=== PATIENT | male | born 1950 ===

== ENCOUNTER 2025-01-01 14:04 | Outpatient (AMB) | payer MEDICAID, SELFPAY ==
--- NOTE | 2025-01-01 14:46 | A.OFFPC_ITS ---
Vital Signs 01/01/25 14:49 Height 5 ft 6 in Weight 133 lb 2.547 oz BMI 21.5 BP 130/74 Blood Pressure Location Lt brachial Position Sitting Pulse 63 Pulse Source Pulse Oximeter Temp 97.5 F Temp Source Temporal Artery Scan Pulse Oximetry (%) 91 L Oxygen Delivery Method Room Air Intake Visit Reasons: establish care Intake Note: Patient is a new patient here to establish care for COPD, Heart issues, sinus issues, prostate issues, Asthma, Blurry vision and some Hearing loss. Transferring care from [facility]. Medical records have been requested and have not received. Yeast Cake Cutter Required: No Information Technology Manager: Present Accompanied by: Son Allergies No Known Allergies Allergy (Verified 01/01/25 18:43) Medication List - Last Reconciled 01/01/25 by Mariano Soliz MD azithromycin 250 mg PO DAILY bisoprolol fumarate 5 mg PO DAILY fluticasone furoate-vilanterol 200-25 mcg/dose (Breo Ellipta) 1 ea inhalation DAILY fluticasone propionate 50 mcg/actuation 1 spray intranasal BID ipratropium-albuterol 0.5 mg-3 mg(2.5 mg base)/3 mL mL inhalation omeprazole 20 mg PO DAILY rivaroxaban (Xarelto) 20 mg PO QPM tadalafil 5 mg PO DAILY tamsulosin 0.4 mg PO DAILY umeclidinium 62.5 mcg/actuation (Incruse Ellipta) 1 inh inhalation DAILY Tobacco use date assessed: 01/01/25 Fall risk assessment: No Falls in past year Last assessed Fall Risk: 01/01/25 Dental Screening Dental Screen Date: 01/01/25 Did you have a dental visit in the last 12 months?: No Did you have a dental problem in the last 6 months where you did not have access to dental care?: No Was dental information given to patient?: No HPI establish care HPI Details 74-year-old male presents to the office to establish his care here. Patient only speaks Irish and translation is done by his son. Patient has relocated from [place] a few weeks ago. He has history of COPD and was using oxygen up to 5 hours at day at baseline. Recently after a long plane travel, any inordinate long stay at the airport, patient has been using oxygen all the time. He is wheelchair-bound and has a nonproductive cough. He was seen at [facility], hospitalized and recently discharge. Patient is carrying a diagnosis of COPD, atrial fibrillation, enlarged prostate and reflux disease. Patient would like an appointment for a outside maintenance worker. The outside maintenance worker who was offered to him at [facility] has given him a follow-up appointment in April. [facility] Medical History (Updated 01/01/25 @ 18:47 by Mariano Soliz MD) GERD (gastroesophageal reflux disease) Benign prostate hyperplasia Atrial fibrillation COPD (chronic obstructive pulmonary disease) with acute bronchitis Surgical History No pertinent past surgical history Social History Housing: House Alcohol intake: never Patient Tobacco Use Status: Former Tobacco user e-Cigarette/Vaping Use: Never Used Second Hand Smoke Exposure: No service: No Current occupational status: retired and disabled Cognitive needs: Yes (wheelchair, walker) Hearing needs: No Vision needs: Yes (Glasses) Questionnaire PHQ-9 Over the last 2 weeks, how often have you been bothered by any of the following problems? 1. Little interest or pleasure in doing things: not at all 2. Feeling down, depressed, or hopeless: not at all 3. Trouble falling or staying asleep, or sleeping too much: not at all 4. Feeling tired or having little energy: not at all 5. Poor appetite or overeating: not at all 6. Feeling bad about yourself - or that you are a failure or have let yourself or your family down: not at all 7. Trouble concentrating on things, such as reading the newspaper or watching television: not at all 8. Moving or speaking so slowly that other people could have noticed. Or the opposite - being so fidgety or restless that you have been moving around a lot more than usual: not at all 9. Thoughts that you would be better off or of hurting yourself in some way: not at all Total score: 0 Depression Screening Interpretation: Negative Depression Screening Done: Yes Source: Developed by Drs. Antoine Ward, Johnna Gary, Ruiz Son and colleagues, with an educational tramaine from [employer]. Thrive Questionnaire Date Thrive assessed: 01/01/25 I am a: Patient What is your living situation today?: I have a steady place to live Within the past 12 months, did the food you bought not last and you didn't have the money to get more?: Never true Within the past 12 months, did you worry whether your food would run out before you got money to buy more?: Never true Do you have trouble paying for medicines?: No Do you have trouble getting transportation to medical appointments?: No Do you have trouble paying your heating and electricity bill?: No Do you have trouble taking care of your child, family member or friend?: No Do you have trouble with day-to-day activities such as bathing, preparing meals, shopping, managing finances, etc.?: No Are you currently unemployed and looking for a job?: No Are you interested in more education?: No Please select the resources that you would like help with: None Currently or been in a relationship where the following occur: No concerns reported THRIVE Score: 0 AUDIT C Alcohol Use Questionnaire (AUDIT-C) 1. How often do you have a drink containing alcohol?: Never Total Score: 0 RICARDO-7 AMB Questionnaire RICARDO-7 Date RICARDO - 7 assessed: 01/01/25 Feeling nervous, anxious, or on edge: 0 = Not at all Not being able to stop or control worryin = Not at all Worrying too much about different things: 0 = Not at all Trouble relaxin = Not at all Being so restless that it is hard to sit still: 0 = Not at all Becoming easily annoyed or irritable: 0 = Not at all Feeling afraid as if something awful might happen: 0 = Not at all Total RICARDO-7 score (0-4 normal; 5-9 mild; 10-14 moderate; 15-21 severe): 0 Source: Developed by Drs. Antoine Ward, Johnna Gary, Ruiz Son and colleagues, with an educational tramaine from [employer]. Physical exam (Primary Care) Vital Signs: Last Vital Signs Temp 97.5 F 01/01/25 14:49 Pulse 63 01/01/25 14:49 BP 130/74 01/01/25 14:49 Pulse Ox 91 L 01/01/25 14:49 Oxygen Delivery Method Room Air 01/01/25 14:49 Care Plan Goal for BP management: Blood pressure is in range. Continue current medications. BMI result Body Mass Index 21.5 Tobacco/Smoking Status: Tobacco use Status Tobacco use date assessed 01/01/25 01/01/25 14:53 Patient Tobacco Use Status Former Tobacco user 01/01/25 15:03 e-Cigarette/Vaping Use Never Used 01/01/25 15:01 PHQ-9: PHQ-9 Score PHQ-9: Total score 0 01/01/25 14:53 Depression Screening Interpretation: Negative Thrive Assessment: Date of Thrive Assessment Date Thrive assessed 01/01/25 01/01/25 14:53 Currently or been in a relationship where the following occur: No concerns reported Const General: cooperative and healthy appearing Nutritional Appearance: well nourished Orientation/consciousness: patient oriented x3 Limitations: no limitations HENMT Head: Yes normal to inspection Eyes General: appearance normal, both eyes and all related structures Neck Neck: Yes normal visual inspection Chest Chest palpation & inspection: normal palpation of entire chest wall Resp Other: Coarse crackles bilaterally. Effort & Inspection: normal respiratory effort Cardio Palpation: normal PMI Rate: regular rate Heart sounds: S1 normal heart sound present and S2 normal heart sound present Neuro General: patient oriented x3 Coding Level of Care Code New Pt Level 4 (80543) Complex EM visit Add On G2211 Diagnoses COPD (chronic obstructive pulmonary disease) with acute bronchitis J44.0; J20.9 Benign prostate hyperplasia N40.0 Atrial fibrillation I48.91 GERD (gastroesophageal reflux disease) K21.9 Assessment & Plan Assessment & Plan (1) COPD (chronic obstructive pulmonary disease) with acute bronchitis: Code(s): J44.0 - Chronic obstructive pulmonary disease with (acute) lower respiratory infection; J20.9 - Acute bronchitis, unspecified Category: Medical Plan: Inhalers were reviewed. Patient on azithromycin. Pulmonary consult requested at [facility]. Continue home oxygen use. (2) Benign prostate hyperplasia: Code(s): N40.0 - Benign prostatic hyperplasia without lower urinary tract symptoms Category: Medical Plan: Condition is stable. (3) Atrial fibrillation: Code(s): I48.91 - Unspecified atrial fibrillation Category: Medical Plan: In sinus rhythm. Rate is well controlled. Continue anticoagulation. (4) GERD (gastroesophageal reflux disease): Code(s): K21.9 - Gastro-esophageal reflux disease without esophagitis Category: Medical Plan: Continue PPI. Orders: Referrals Pulmonology Referral J20.9 - Acute bronchitis, unspecified, J44.0 - Chronic obstructive pulmonary disease with (acute) lower respiratory infection
[2025-01-01 14:49] VITALS: BP 130/74; PULSE 63; TEMP 36.4; O2SAT 91; BMI 21.5
== END 2025-01-01 15:44 | disposition home or self-care (01) ==
PROVIDERS: PCP Internal Medicine; Visit Provider Internal Medicine
DX: J44.0 Chronic obstructive pulmonary disease with (acute) lower respiratory infection (principal); J20.9 Acute bronchitis, unspecified; N40.0 Benign prostatic hyperplasia without lower urinary tract symptoms; I48.91 Unspecified atrial fibrillation; K21.9 Gastro-esophageal reflux disease without esophagitis

== ENCOUNTER → 2025-01-01 14:04 | Outpatient (BNVA) | payer MEDICAID, SELFPAY | PROVIDERS: Visit Provider Internal Medicine | DX: J44.0 Chronic obstructive pulmonary disease with (acute) lower respiratory infection (principal); J20.9 Acute bronchitis, unspecified; N40.0 Benign prostatic hyperplasia without lower urinary tract symptoms; I48.91 Unspecified atrial fibrillation; K21.9 Gastro-esophageal reflux disease without esophagitis | CPT/HCPCS: 99202 ==

== ENCOUNTER 2025-02-26 13:30 | Outpatient (AMB) | payer MEDICAID, SELFPAY ==
--- NOTE | 2025-02-26 13:35 | MHC.PC.OV ---
Vital Signs 02/26/25 13:37 Height 5 ft 6 in Weight 128 lb 11.999 oz BMI 20.8 BP 120/70 Blood Pressure Location Lt brachial Position Sitting Pulse 65 Pulse Source Pulse Oximeter Temp 97.3 F Temp Source Temporal Artery Scan Pulse Oximetry (%) 91 L Oxygen Delivery Method Nasal Cannula Intake Visit Reasons: Discuss medication Intake Note: Patient is here to follow up on Discuss medication (Tadalafil). Engine Lathe Set Up Operator Tool Required: Yes Information Interpreted: non-clinical & clinical Curb Hop: Present Accompanied by: Son Allergies No Known Allergies Allergy (Verified 02/26/25 14:05) Medication List - Last Reconciled 02/26/25 by Mariano Soliz MD azithromycin 250 mg PO DAILY bisoprolol fumarate 5 mg PO DAILY fluticasone furoate-vilanterol 200-25 mcg/dose (Breo Ellipta) 1 ea inhalation DAILY fluticasone propionate 50 mcg/actuation 1 spray intranasal BID ipratropium-albuterol 0.5 mg-3 mg(2.5 mg base)/3 mL mL inhalation omeprazole 20 mg PO DAILY rivaroxaban (Xarelto) 20 mg PO QPM tadalafil 5 mg PO DAILY tamsulosin 0.4 mg PO DAILY umeclidinium 62.5 mcg/actuation (Incruse Ellipta) 1 inh inhalation DAILY Tobacco use date assessed: 02/26/25 Fall risk assessment: No Falls in past year Last assessed Fall Risk: 02/26/25 Dental Screening Dental Screen Date: 01/01/25 [facility] Medical History (Updated 02/26/25 @ 14:06 by Mariano Soliz MD) Cachexia On supplemental oxygen by nasal cannula GERD (gastroesophageal reflux disease) Benign prostate hyperplasia Atrial fibrillation COPD (chronic obstructive pulmonary disease) with acute bronchitis Surgical History No pertinent past surgical history Social History Housing: House Alcohol intake: never Patient Tobacco Use Status: Former Tobacco user e-Cigarette/Vaping Use: Never Used Second Hand Smoke Exposure: No service: No Current occupational status: retired and disabled Cognitive needs: Yes (wheelchair, walker) Hearing needs: No Vision needs: Yes (Glasses) Questionnaire Thrive Questionnaire Date Thrive assessed: 01/01/25 RICARDO-7 AMB Questionnaire RICARDO-7 Date RICARDO - 7 assessed: 01/01/25 Source: Developed by Drs. Antoine Ward, Johnna Gary, Ruiz Son and colleagues, with an educational tramaine from [employer]. Physical exam (Primary Care) Vital Signs: Last Vital Signs Temp 97.3 F 02/26/25 13:37 Pulse 65 02/26/25 13:37 BP 120/70 02/26/25 13:37 Pulse Ox 91 L 02/26/25 13:37 Oxygen Delivery Method Nasal Cannula 02/26/25 13:37 BMI result Body Mass Index 20.8 Tobacco/Smoking Status: Tobacco use Status Tobacco use date assessed 02/26/25 02/26/25 13:41 Patient Tobacco Use Status Former Tobacco user 02/26/25 13:36 e-Cigarette/Vaping Use Never Used 02/26/25 13:36 Thrive Assessment: Date of Thrive Assessment Date Thrive assessed 01/01/25 02/26/25 13:36 Coding Level of Care Code Est Pt Level 4 (12868) Complex EM visit Add On G2211 Diagnoses Cachexia R64 Assessment & Plan Assessment & Plan (1) Cachexia: Code(s): R64 - Cachexia Category: Medical Plan: Condition due to COPD and depression. Has multiple deaths in the family which has made him morose. Does not want to see a therapist. Reluctant to start antidepressants. Encouraged him to take small quantity of food multiple times a day. Plan History of Present Illness The patient is a 74-year-old male presenting with multiple medical concerns, primarily focusing on unintentional weight loss. Despite the intake of nutritional supplements like Ensure, weight reduction persists, accompanied by a notable decrease in appetite. These symptoms may be exacerbated by personal grief and stress factors related to his family situation, pointing towards associative depressive symptoms affecting his dietary intake. Management of prostate enlargement issues involving the usage of Tadalafil was discussed, yet there is ambiguity on whether to proceed with or cease usage. The patient reports trihydrating with liquid diets, specifically smoothies enriched with high-caloric ingredients like nuts and butter, as advised for better nutrition uptake, although urination issues are minimal. Hearing concerns have been assessed, confirming the necessity for hearing aids, yet further procedures and specialist intervention via an ENT specialist are awaited. The patient values communication in his [place] language and emphasizes continuity of care with specialists like Dr. Flores due to language abilities and mutual understanding. Discussions during the visit were both comprehensive and considerate of the array of chronic issues he faces. Social History - Has three children living in [place]. 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 - Currently receiving a nutritional intake primarily from liquid diets such as smoothies. - Reports limited appetite and food intake. - No mentioned substance use. - Personal stress due to the recent loss of a brother and associated depressive symptoms. Review of Systems - Constitutional: Reports weight loss. - Gastrointestinal: Reports significantly decreased appetite. - Genitourinary: Reports prostate enlargement-related issues without current urination difficulties. - Respiratory: Reports dyspnea on exertion. - Mental Health: Reports feelings of depression, likely related to family and personal loss. - Hearing: Reports hearing loss and requirement of further evaluation by an ENT. Physical Exam General: Cooperative and healthy appearing Nutritional Appearance: Well nourished Orientation/consciousness: Patient oriented x3 Limitations: No limitations Head: Normal to inspection General: Appearance normal, both eyes and all related structures Neck: Normal visual inspection Chest: Normal palpation of entire chest wall Respiratory: Patient is doing well, oxygen level is good even while walking. ormal respiratory effort Neurology: Patient oriented x3. Results - Tests and Diagnostics: - Previous assessment by the hearing department indicating a need for hearing aids. Plan 1. Unintentional Weight Loss - Advise on high-caloric liquid diet. - Monitor appetite levels. 2. Decreased Appetite - Consider appetite stimulants. - Reassess mood influence. 3. Prostate Enlargement - Consider Tadalafil management. 4. Hearing Loss - Expedite ENT referral. - Follow up on hearing aid recommendations. 5. Depressive Symptoms - Discuss mood concerns. - Consider therapy. 6. Dyspnea On Exertion - Continue pulmonary management, use oxygen as needed. 7. Erectile Dysfunction - Review Tadalafil usage. Discussion Notes During the visit, I discussed with the patient the concern of ongoing weight loss despite supplement use, emphasizing the importance of consistent intake of high-caloric liquid diets including smoothies enriched with nuts and protein to potentially improve his nutritional status. The role of mood disturbances on his appetite was also reviewed, with consideration for potential therapy if no improvement is noted. Regarding his prostate enlargement, the decision to cease or continue Tadalafil was deliberated, with advice provided to monitor any changes in urinary symptoms closely. Addressing the hearing loss, I confirmed the need to expedite a referral to an ENT specialist for hearing aids as per previous testing indicated their necessity. I committed to closely reviewing the progress with emphasis on coordination with specialists who speak his [place] language, as seen with Dr. Flores's pivotal role in managing his pulmonary care. For persistent depressive symptoms, therapeutic modalities were discussed to aid coping with emotional stressors. Patient Instructions - Eat smoothies or liquid nutrition with high calories, like nuts and butter. - Pay attention to any changes in appetite or urination. - Keep breathing easy with exercises and use oxygen as needed. - Go to see the Ear, Nose, and Throat doctor soon. - Share feelings and talk with family to help with sadness. - Qis not working well, an appetite stimulant might be considered. - Always take Lasix in the morning.
[2025-02-26 13:37] VITALS: BP 120/70; PULSE 65; TEMP 36.3; O2SAT 91; BMI 20.8
== END 2025-02-26 14:06 | disposition home or self-care (01) ==
LOC: HO.HMCH 13:31
PROVIDERS: PCP Internal Medicine; Visit Provider Internal Medicine
DX: R64 Cachexia (principal)

== ENCOUNTER → 2025-02-26 13:30 | Outpatient (BNVA) | payer MEDICAID, SELFPAY | PROVIDERS: PCP Internal Medicine; Visit Provider Internal Medicine | DX: R64 Cachexia (principal) | CPT/HCPCS: 99212 ==

== ENCOUNTER 2025-04-30 14:45 | Outpatient (AMB) | payer MEDICAID, SELFPAY ==
[2025-04-30 15:02] VITALS: BP 100/60; PULSE 67; TEMP 36.2; O2SAT 93; BMI 20.2
--- NOTE | 2025-04-30 15:02 | A.OFFPC_ITS ---
Vital Signs 04/30/25 15:02 Height 5 ft 6 in Weight 125 lb 6 oz BMI 20.2 BP 100/60 Blood Pressure Location Lt brachial Position Sitting Pulse 67 Pulse Source Pulse Oximeter Temp 97.1 F Temp Source Temporal Artery Scan Pulse Oximetry (%) 93 Oxygen Delivery Method Nasal Cannula Oxygen Flow Rate 2 Intake Visit Reasons: 3mth f/u System Operation Superintendent Required: No Accompanied by: Son Allergies No Known Allergies Allergy (Verified 04/30/25 15:03) Tobacco use date assessed: 02/26/25 Fall risk assessment: No Falls in past year Last assessed Fall Risk: 04/30/25 Dental Screening Dental Screen Date: 01/01/25 HPI 3mth f/u HPI Details 74 yr old male presents to the office to review his chronic medical conditions. Complains of hesitancy in urination. Has restarted Tadalafil. COPD is stable, needs 4l/min oxygen while walking and 2l/min while sitting down. Continuing rehab exercises. [facility] Medical History Hearing decreased Cachexia On supplemental oxygen by nasal cannula GERD (gastroesophageal reflux disease) Benign prostate hyperplasia Atrial fibrillation COPD (chronic obstructive pulmonary disease) with acute bronchitis Surgical History No pertinent past surgical history Social History Housing: House Alcohol intake: never Patient Tobacco Use Status: Former Tobacco user e-Cigarette/Vaping Use: Never Used Second Hand Smoke Exposure: No service: No Current occupational status: retired and disabled Cognitive needs: Yes (wheelchair, walker) Hearing needs: No Vision needs: Yes (Glasses) Questionnaire Thrive Questionnaire Date Thrive assessed: 01/01/25 RICARDO-7 AMB Questionnaire RICARDO-7 Date RICARDO - 7 assessed: 01/01/25 Source: Developed by Drs. Antoine Ward, Johnna Gary, Ruiz Son and colleagues, with an educational tramaine from [employer]. Physical exam (Primary Care) Vital Signs: Last Vital Signs Temp 97.1 F 04/30/25 15:02 Pulse 67 04/30/25 15:02 BP 100/60 04/30/25 15:02 Pulse Ox 93 04/30/25 15:02 Oxygen Delivery Method Nasal Cannula 04/30/25 15:02 Oxygen Flow Rate 2 04/30/25 15:02 BMI result Body Mass Index 20.2 Tobacco/Smoking Status: Tobacco use Status Tobacco use date assessed 02/26/25 04/30/25 15:04 Patient Tobacco Use Status Former Tobacco user 04/30/25 15:04 e-Cigarette/Vaping Use Never Used 04/30/25 15:04 Thrive Assessment: Date of Thrive Assessment Date Thrive assessed 01/01/25 04/30/25 15:04 Const General: cooperative and healthy appearing Nutritional Appearance: well nourished Orientation/consciousness: patient oriented x3 Limitations: no limitations HENMT Head: Yes normal to inspection Eyes General: appearance normal, both eyes and all related structures Neck Neck: Yes normal visual inspection Chest Chest palpation & inspection: normal palpation of entire chest wall Resp Effort & Inspection: normal respiratory effort Neuro General: patient oriented x3 Coding Level of Care Code Est Pt Level 4 (40241) Complex EM visit Add On G2211 Diagnoses COPD (chronic obstructive pulmonary disease) with acute bronchitis J44.0; J20.9 Benign prostate hyperplasia N40.0 Assessment & Plan Assessment & Plan (1) COPD (chronic obstructive pulmonary disease) with acute bronchitis: Code(s): J44.0 - Chronic obstructive pulmonary disease with (acute) lower respiratory infection; J20.9 - Acute bronchitis, unspecified Category: Medical Plan: Continue current medication and treatment (2) Benign prostate hyperplasia: Code(s): N40.0 - Benign prostatic hyperplasia without lower urinary tract symptoms Category: Medical Plan: PSA ordered. Will get urology consult
== END 2025-04-30 15:55 | disposition home or self-care (01) ==
LOC: HO.HMCH 14:46
PROVIDERS: PCP Internal Medicine; Visit Provider Internal Medicine
DX: J44.0 Chronic obstructive pulmonary disease with (acute) lower respiratory infection (principal); J20.9 Acute bronchitis, unspecified; N40.0 Benign prostatic hyperplasia without lower urinary tract symptoms

== ENCOUNTER → 2025-04-30 14:45 | Outpatient (BNVA) | payer MEDICAID, SELFPAY | PROVIDERS: PCP Internal Medicine; Visit Provider Internal Medicine | DX: N40.1 Benign prostatic hyperplasia with lower urinary tract symptoms (principal); J44.9 Chronic obstructive pulmonary disease, unspecified; J20.9 Acute bronchitis, unspecified; R39.11 Hesitancy of micturition; Z99.81 Dependence on supplemental oxygen | CPT/HCPCS: 99212 ==

== ENCOUNTER 2025-05-27 13:54 | Outpatient (AMB) | payer MEDICAID, SELFPAY ==
--- NOTE | 2025-05-27 13:58 | A.OFFPC_ITS ---
Vital Signs 05/27/25 14:02 Height 5 ft 6 in Weight 123 lb 2 oz BMI 19.9 BP 130/60 Blood Pressure Location Lt brachial Position Sitting Pulse 69 Pulse Source Pulse Oximeter Temp 97.1 F Temp Source Temporal Artery Scan Pulse Oximetry (%) 92 Oxygen Delivery Method Room Air Intake Visit Reasons: follow up Intake Note: Patient is here to follow up on COPD, Afib, BPH. Managing Partner [employer] [place] Required: Yes Managing Partner [employer] [place] Language: Malay Managing Partner [employer] [place] Name: Davina(son) Information Interpreted: non-clinical & clinical Custom Frame Assembler: Present Accompanied by: Son Allergies No Known Allergies Allergy (Verified 05/27/25 14:01) Tobacco use date assessed: 05/27/25 Fall risk assessment: No Falls in past year Last assessed Fall Risk: 05/27/25 Dental Screening Dental Screen Date: 01/01/25 [facility] Medical History (Updated 05/27/25 @ 14:29 by Mariano Soliz MD) Osteoarthritis Hearing decreased Cachexia On supplemental oxygen by nasal cannula GERD (gastroesophageal reflux disease) Benign prostate hyperplasia Atrial fibrillation COPD (chronic obstructive pulmonary disease) with acute bronchitis Surgical History No pertinent past surgical history Social History Housing: House Alcohol intake: never Patient Tobacco Use Status: Former Tobacco user e-Cigarette/Vaping Use: Never Used Second Hand Smoke Exposure: Yes service: No Current occupational status: retired and disabled Cognitive needs: Yes (wheelchair, walker) Hearing needs: No Vision needs: Yes (Glasses) Questionnaire Thrive Questionnaire Date Thrive assessed: 01/01/25 RICARDO-7 AMB Questionnaire RICARDO-7 Date RICARDO - 7 assessed: 01/01/25 Source: Developed by Drs. Antoine Ward, Johnna Gary, Ruiz Son and colleagues, with an educational tramaine from [employer]. Physical exam (Primary Care) Vital Signs: Last Vital Signs Temp 97.1 F 05/27/25 14:02 Pulse 69 05/27/25 14:02 BP 130/60 05/27/25 14:02 Pulse Ox 92 05/27/25 14:02 Oxygen Delivery Method Room Air 05/27/25 14:02 BMI result Body Mass Index 19.9 Tobacco/Smoking Status: Tobacco use Status Tobacco use date assessed 05/27/25 05/27/25 14:08 Patient Tobacco Use Status Former Tobacco user 05/27/25 14:00 e-Cigarette/Vaping Use Never Used 05/27/25 14:00 Thrive Assessment: Date of Thrive Assessment Date Thrive assessed 01/01/25 05/27/25 14:00 Coding Level of Care Code Est Pt Level 4 (19434) Complex EM visit Add On G2211 Diagnoses Osteoarthritis M19.90 COPD (chronic obstructive pulmonary disease) with acute bronchitis J44.0; J20.9 Assessment & Plan Assessment & Plan (1) Osteoarthritis: Code(s): M19.90 - Unspecified osteoarthritis, unspecified site Category: Medical Plan: Patient is complaining of generalized body aches. Patient has a poor nutrition intake. I encouraged him to be on a diet that has smoothies in addition to the boost supplements (2) COPD (chronic obstructive pulmonary disease) with acute bronchitis: Code(s): J44.0 - Chronic obstructive pulmonary disease with (acute) lower respiratory infection; J20.9 - Acute bronchitis, unspecified Category: Medical Plan: Sees a diesel mechanic at [facility]. Plan History of Present Illness - The patient is a 74-year-old male presenting with generalized body aches and dyspnea. - Reports persistent pain in the right shoulder and lower extremities, affecting rehabilitation efforts. - Dyspnea noted, with potential need for pulmonary intervention. - Poor nutritional intake, advised to increase caloric consumption and improve diet quality. Social History - The patient is not smoking and avoids exposure to smoke, even during cooking. - He has been advised to consume more natural, healthy foods and increase his caloric intake to over 3000 calories per day. Review of Systems - Musculoskeletal: Reports generalized body aches and right shoulder pain. - Respiratory: Reports dyspnea, impacting daily activities. Physical Exam General: Cooperative and healthy appearing Nutritional Appearance: Well nourished Orientation/consciousness: Patient oriented x3 Limitations: No limitations Head: Normal to inspection General: Appearance normal, both eyes and all related structures Neck: Normal visual inspection Chest: Normal palpation of entire chest wall Respiratory: Patient experiencing difficulty breathing, possibly requiring a valve for better lung function. ormal respiratory effort Neurology: Patient oriented x3, but experiencing generalized body aches, including pain in the right shoulder, right lower extremities, eyes, and hands. Results Plan 1. Generalized Body Aches - Short-term pain management with medication, avoiding long-term use. - Nutritional support to enhance health and energy. 2. Dyspnea - Digital Campaign Manager referral for evaluation and possible valve intervention. - Monitor and adjust respiratory treatment as necessary. 3. Poor Nutrition - Increase caloric intake to over 3000 calories daily with healthy foods. - Dietitian consultation for tailored dietary advice. Discussion Notes I discussed the importance of addressing the patient's poor nutrition by increasing caloric intake and focusing on natural, healthy foods. We also talked about the need for short-term pain management and the potential for pulmonary intervention to address dyspnea. Follow-up with a diesel mechanic and a dietitian was recommended to ensure comprehensive care. Patient Instructions - Increase daily caloric intake to over 3000 calories with a focus on natural, healthy foods. - Follow up with a diesel mechanic for further evaluation of respiratory issues. - Consider consulting a dietitian for personalized dietary advice.
[2025-05-27 14:02] VITALS: BP 130/60; PULSE 69; TEMP 36.2; O2SAT 92; BMI 19.9
--- OUTSIDE RECORDS SUMMARY | 2025-05-27 14:24 | XMS_ITS | Clinical Summary ---
Author Organization [facility] Address [address] [place] [address] Phone Care Team Providers Care Dry Starch Operator Name Role Phone Pcp, Unknown Primary Care Provider Unavailabl e Social History Tobacco Use Types Packs/Day Years Used Date Smoking Tobacco: Never Assessed Education Answer Date Recorded Are you interested in more education? Not on norma e 02/03/2025 Are you concerned about learning? Not on file 02/03/2025 No 02/03/2025 No 02/03/2025 Digital Access Answer Date Recorded No 02/03/2025 No 02/03/2025 Reliable internet access at home? Not on file 02/03/2025 Device with a working camera? Not on file Sex and Gender Information Value Date Recorded Sex Assigned at Not on file Legal Sex Male 11:44 AM EDT Gender Identity Not on file Sexual Orientation Not on file Plan of Treatment Upcoming Encounters Date Type Department Care Team (Late st Contact Info) Description 09/10/2025 10:45 AM EST Appointment [facility] [address], [address] [place] [address] Micaela Arias MD [address] [facility] [place] [address] [email or web address] 09/10/2025 1:00 PM EST Office Visit [facility] [address], [address] [place] [address] Micaela Arias MD [address] [place] [address] [email or web address] Health Maintenance Due Date Last Done Comments Adult Td,Tdap Booster 1950 LIPID PANEL 1950 DEPRESSION SCREENING 1960 SMOKING Hx and SMOKELESS TOB ACCO SCREENING 1961 HEPATITIS C SCREENING 1966 PNEUMOCOCCAL VACCINES (50+ y ears) (1 of 2 - PCV) 1967 ZOSTER VACCINES (1 of 2) 1998 RSV VACCINE (1 - 1-dose 75+ series) 2023 COVID-19 VACCINE ( - 2023-2 5 season) 2024 HEPATITIS A VACCINES Aged Out No long er eligible based on patient's age to complete this topic HIB VACCINES Aged Out No longer eligi ble based on patient's age to complete this topic MENINGOCOCCAL VACCINES (ACWY) Aged Out No longer eligible based on patient's age to complete this topic MENINGOCOCCAL VACCINES (B) Aged Out N o longer eligible based on patient's age to complete this topic Medical Devices Not on file Insurance [facility] [place] [address] [place] [id number] Care Teams Dry Starch Operator Relationship Specialty Start Date End Date Pcp, Unknown PCP - General 01/30/25 Additional Source Comments The information contained in this document represents components of the legal health record. It is not the complete legal health record.[facility]
== END 2025-05-27 14:30 | disposition home or self-care (01) ==
LOC: HO.HMCH 13:55
PROVIDERS: PCP Internal Medicine; Visit Provider Internal Medicine
DX: M19.90 Unspecified osteoarthritis, unspecified site (principal); J44.0 Chronic obstructive pulmonary disease with (acute) lower respiratory infection; J20.9 Acute bronchitis, unspecified

== ENCOUNTER → 2025-05-27 13:54 | Outpatient (BNVA) | payer MEDICAID, SELFPAY | PROVIDERS: PCP Internal Medicine; Visit Provider Internal Medicine | DX: N40.0 Benign prostatic hyperplasia without lower urinary tract symptoms (principal); I48.91 Unspecified atrial fibrillation; M19.90 Unspecified osteoarthritis, unspecified site; J44.0 Chronic obstructive pulmonary disease with (acute) lower respiratory infection; J20.9 Acute bronchitis, unspecified; R52 Pain, unspecified; R06.00 Dyspnea, unspecified; E63.9 Nutritional deficiency, unspecified | CPT/HCPCS: 99212 ==

== ENCOUNTER 2025-07-16 10:50 | Outpatient (AMB) | payer MEDICAID, SELFPAY ==
--- NOTE | 2025-07-16 11:00 | A.OFFVIS_ITS ---
Intake Visit Reasons: BPH Intake Note: Patient is present for BPH Urology Medication:TAMSULOSIN Antibiotic Allergy:NONE Blood Thinner:RIVAROXABAN TODAY'S PVR:0ML'S Unclaimed Property Officer Required: No Allergies No Known Allergies Allergy (Verified 07/16/25 12:20) Medication List - Last Reconciled 07/16/25 by TORY Renteria- bisoprolol fumarate 5 mg PO DAILY fluticasone furoate-vilanterol 200-25 mcg/dose (Breo Ellipta) 1 ea inhalation DAILY fluticasone propionate 50 mcg/actuation 1 spray intranasal BID food supplemt, lactose-reduced 1 ea PO TIDWMEAL ipratropium-albuterol 0.5 mg-3 mg(2.5 mg base)/3 mL mL inhalation levocetirizine 5 mg PO QPM omeprazole 20 mg PO DAILY rivaroxaban (Xarelto) 20 mg PO QPM tamsulosin 0.4 mg PO DAILY topiramate 25 mg PO DAILY umeclidinium 62.5 mcg/actuation (Incruse Ellipta) 1 inh inhalation DAILY HPI Comments Details: Gagan is a pleasant 74-year-old Malay speaking male patient of who was accompanied by his son at today's office visit. He has a past medical history of osteoarthritis, decreased hearing, GERD, BPH, AFib, and COPD on supplemental oxygen via nasal cannula. He presents to the office today as a new patient to establish urological care. In discussion with the patient and his son today he reports recently moving here from [place] in his looking to establish urological care. He reports he has been on low-dose Cialis as well as tamsulosin for ongoing issues he has been experiencing with his bladder and prostate. He reports prior to initiation of medication he had been experiencing bladder discomfort and pressure. However does feel tamsulosin and low-dose Cialis has been helpful in treating these lower urinary tract symptoms he had been previously feeling. In office urinalysis results reviewed with the patient today. PVR 0 mL. When asked he currently denies any bothersome urinary issues. He denies urinary urgency, urinary frequency, incontinence, nocturia, hematuria, dysuria, foul smelling urine, changes to urinary stream, flank pain, fever, and or chills. He is happy with his current voiding parameters. We did discussed potential causes of lower urinary tract symptoms. All questions were answered. He otherwise offers no other issues or concerns at this time. [facility] Medical History Osteoarthritis Hearing decreased Cachexia On supplemental oxygen by nasal cannula GERD (gastroesophageal reflux disease) Benign prostate hyperplasia Atrial fibrillation COPD (chronic obstructive pulmonary disease) with acute bronchitis Surgical History No pertinent past surgical history Social History Housing: House Alcohol intake: never Patient Tobacco Use Status: Former Tobacco user e-Cigarette/Vaping Use: Never Used Second Hand Smoke Exposure: Yes service: No Current occupational status: retired and disabled Cognitive needs: Yes (wheelchair, walker) Hearing needs: No Vision needs: Yes (Glasses) Review of Systems Const All systems reviewed & are unremarkable except as noted in HPI and below Physical Exam Const General: cooperative, comfortable, no acute distress, well developed, alert and awake Orientation/consciousness: patient oriented x3 Limitations: language barrier, ambulation with cane and other limitations (Oxygen-dependent O2 via nasal cannula) HEENT Head: Yes normal to inspection, Yes normocephalic and Yes atraumatic Ears: hearing grossly normal bilaterally Eyes General: appearance normal, both eyes and all related structures Neck Neck: Yes normal visual inspection and Yes trachea midline Chest Chest palpation & inspection: normal inspection of the chest Resp Other: O2 dependent via nasal cannula Effort & Inspection: normal respiratory effort and able to speak in complete sentences Cardio Rate: regular rate GI Inspection: Yes normal to inspection General: Yes no CVA tenderness Back/Spine/Pelvis Back: no CVA tenderness Skin General skin exam: no rashes or lesions noted Neuro General: patient oriented x3 Extrem General: Yes normal to inspection Psych Appearance: grossly normal and well kempt Mental Status: mental status grossly normal Speech and movement: Normal speech and movement present and Clear speech present Affect: normal affect Attitude: cooperative Thought process: Normal thought process present Thought content: Normal thought content present Insight: Fair insight present (Psych) Judgement: Fair judgement present (Psych) Office Procedures Post Void Residual Post Residual Void Post Void Residual (PVR): 0 [id number]-[id number] Void Residual by ultrasound Results AMB Urinalysis, Automated UA Leukoctes 0 Alexandra/uL Last Edit by [facility]usebio Parkinson [facility] on 07/16/25 11:31 UA Nitrite Negative Last Edit by Eusebio Parkinson [facility] on 07/16/25 11:31 UA Urobilinogen 0.2 mg/dL Last Edit by Eusebio Parkinson [facility] on 07/16/25 11:3 1 UA Protein 15 mg/dL Last Edit by Eusebio Parkinson [facility] on 07/16/25 11:31 UA pH 6.5 Last Edit by Eusebio Parkinson [facility] on 07/16/25 11:31 UA Blood 0 Blaise/uL Last Edit by Eusebio Parkinson [facility] on 07/16/25 11:31 UA Specific [place] 1.010 Last Edit by Eusebio Parkinson [facility] on 07/16/25 11: 31 UA Ketone Negative Last Edit by Eusebio Parkinson [facility] on 07/16/25 11:31 UA Bilirubin 0 mg/dL Last Edit by Eusebio Parkinson [facility] on 07/16/25 11:31 UA Glucose 0 mg/dL Last Edit by Eusebio Parkinson [facility] on 07/16/25 11:31 Results Reviewed Results Reviewed: Laboratory Last Values Urine pH (Auto) 6.5 07/16/25 11:15 Specific [place] (Auto) 1.010 07/16/25 11:15 Urine Protein (Auto) 15 mg/dL 07/16/25 11:15 Glucose (UA)(Auto) 0 mg/dL 07/16/25 11:15 Urine Ketones (Auto) Negative 07/16/25 11:15 Urine Blood (Auto) 0 Blaise/uL 07/16/25 11:15 Urine Nitrite (Auto) Negative 07/16/25 11:15 Urine Bilirubin (Auto) 0 mg/dL 07/16/25 11:15 Urine Urobilinogen (Auto) 0.2 mg/dL 07/16/25 11:15 Leukocyte Esterase (Auto) 0 Alexandra/uL 07/16/25 11:15 Assessment & Plan Assessment & Plan (1) Benign prostate hyperplasia: Code(s): N40.0 - Benign prostatic hyperplasia without lower urinary tract symptoms Category: Medical (2) Lower urinary tract symptoms: Code(s): R39.9 - Unspecified symptoms and signs involving the genitourinary system Category: Medical Plan In office urinalysis results reviewed with the patient today; as noted above. PVR 0 mL. Will obtain retroperitoneal ultrasound for further assessment evaluation. Will obtain PSA for further assessment evaluation. Continue Flomax and low-dose Cialis as discussed and prescribed; refills provided. We did discussed bladder triggers and irritants. All questions were answered. Follow-up in 3 months with imaging and PVR; or sooner with any issues, concerns, and or questions. Orders: Orders AMB Urinalysis Automated Today Z13.9 - Encounter for screening, unspecified US retroperitoneal comp Today N40.0 - Benign prostatic hyperplasia without lower urinary tract symptoms, R39.9 - Unspecified symptoms and signs involving the genitourinary system Prostate Specific Antigen Today N40.0 - Benign prostatic hyperplasia without lower urinary tract symptoms, R39.9 - Unspecified symptoms and signs involving the genitourinary system Medications: New tadalafil (Cialis) [id number] [facility] GroupG[facility] Member [id number] 5 mg PO DAILY 90 tabs 1RF 90 days Changed From tamsulosin 0.4 mg PO DAILY To tamsulosin 0.4 mg PO DAILY 90 caps 1RF 90 days Patient Instructions: The patient had an opportunity to ask questions regarding the treatment plan. All questions were answered. Physical exam, labs, and imaging were discussed and reviewed in detail. As well as risks, benefits, and discussion of treatment choices. No major barriers to understanding were identified. The patient expres sed understanding and agreement with the above treatment plan. The patient was made aware they should contact our office by phone for worsening of their current condition, the appearance of new symptoms, or with any questions or concerns. Compliance is encouraged with any medications and follow up testing that is ordered. It is a privilege to be allowed the opportunity to participate in? your urological care.? Again, if you have any questions or concerns If you have any questions or concerns please do not hesitate to contact me. The office is [phone]. This note is constructed using voice recognition software. While every effort has been made to ensure accuracy character artist errors may have been included. Yours sincerely, DOMI Renteria Coding Level of Care Code New Pt Level 3 (10271) Diagnoses Benign prostate hyperplasia N40.0 Lower urinary tract symptoms R39.9 CPT Codes Post Residual Void - PVR CPT Code: 44046-Sjqd Void Residual by ultrasound ([id number])
== END 2025-07-16 11:53 | disposition home or self-care (01) ==
LOC: HO.HUSH 10:50
PROVIDERS: PCP Internal Medicine; Visit Provider Nurse Practitioner Family
DX: N40.0 Benign prostatic hyperplasia without lower urinary tract symptoms (principal); R39.9 Unspecified symptoms and signs involving the genitourinary system; Z13.9 Encounter for screening, unspecified
CPT/HCPCS: 99203

== ENCOUNTER → 2025-07-16 10:50 | Outpatient (BNVA) | payer MEDICAID, SELFPAY | PROVIDERS: PCP Internal Medicine; Visit Provider Nurse Practitioner Family | DX: N40.0 Benign prostatic hyperplasia without lower urinary tract symptoms (principal); R39.9 Unspecified symptoms and signs involving the genitourinary system | CPT/HCPCS: 51798; 81003; 99212 ==

== ENCOUNTER 2025-08-13 10:57 | Outpatient (AMB) | payer MEDICAID, SELFPAY ==
--- NOTE | 2025-08-13 11:01 | A.OFFPC_ITS ---
Vital Signs 08/13/25 11:02 Height 5 ft 6 in Weight 128 lb BMI 20.7 BP 100/62 Blood Pressure Location Lt brachial Position Sitting Pulse 60 Pulse Source Pulse Oximeter Temp 97.3 F Temp Source Temporal Artery Scan Pulse Oximetry (%) 92 Oxygen Delivery Method Nasal Cannula Intake Visit Reasons: Follow Up Intake Note: Patient is here to follow up on BPH, Afib, GERD, COPD. Ornamental Metal Worker Helper Required: Yes Ornamental Metal Worker Helper Language: Yi Ornamental Metal Worker Helper Name: Sadie (deshawn mercer) Information Interpreted: non-clinical & clinical Oracle Ebs Developer: Present Accompanied by: Deshawn-ruslan Allergies No Known Allergies Allergy (Verified 08/13/25 11:02) Tobacco use date assessed: 08/13/25 Fall risk assessment: No Falls in past year Last assessed Fall Risk: 08/13/25 Dental Screening Dental Screen Date: 01/01/25 [facility] Medical History Osteoarthritis Hearing decreased Cachexia On supplemental oxygen by nasal cannula GERD (gastroesophageal reflux disease) Benign prostate hyperplasia Atrial fibrillation COPD (chronic obstructive pulmonary disease) with acute bronchitis Surgical History No pertinent past surgical history Social History Housing: House Alcohol intake: never Patient Tobacco Use Status: Former Tobacco user e-Cigarette/Vaping Use: Never Used Second Hand Smoke Exposure: Yes service: No Current occupational status: retired and disabled Cognitive needs: Yes (wheelchair, walker) Hearing needs: No Vision needs: Yes (Glasses) Questionnaire Thrive Questionnaire Date Thrive assessed: 08/06/25 I am a: Patient What is your living situation today?: I have a steady place to live Within the past 12 months, did the food you bought not last and you didn't have the money to get more?: I choose not to answer this question Do you have trouble paying for medicines?: I choose not to answer this question Do you have trouble getting transportation to medical appointments?: I choose not to answer this question Do you have trouble paying your heating and electricity bill?: I choose not to answer this question Do you have trouble taking care of your child, family member or friend?: I choose not to answer this question Are you currently unemployed and looking for a job?: I choose not to answer this question Are you interested in more education?: I choose not to answer this question THRIVE Score: 0 RICARDO-7 AMB Questionnaire RICARDO-7 Date RICARDO - 7 assessed: 01/01/25 Source: Developed by Drs. Antoine Ward, Johnna Gary, Ruiz Son and colleagues, with an educational tramaine from [employer]. Physical exam (Primary Care) Vital Signs: Last Vital Signs Temp 97.3 F 08/13/25 11:02 Pulse 60 08/13/25 11:02 BP 100/62 08/13/25 11:02 Pulse Ox 92 08/13/25 11:02 Oxygen Delivery Method Nasal Cannula 08/13/25 11:02 BMI result Body Mass Index 20.7 Tobacco/Smoking Status: Tobacco use Status Tobacco use date assessed 08/13/25 08/13/25 11:11 Patient Tobacco Use Status Former Tobacco user 08/13/25 11:11 e-Cigarette/Vaping Use Never Used 08/13/25 11:11 Thrive Assessment: Date of Thrive Assessment Date Thrive assessed 08/06/25 08/13/25 11:11 Coding Level of Care Code Est Pt Level 4 (19542) Diagnoses Lung cancer C34.90 Assessment & Plan Assessment & Plan (1) Lung cancer: Code(s): C34.90 - Malignant neoplasm of unspecified part of unspecified bronchus or lung Plan: History of Present Illness - The patient is a 74-year-old male presenting with lung cancer management. - Lung cancer was diagnosed following a biopsy that revealed early-stage cancer. - Radiation therapy is planned as part of the treatment regimen. - The patient has ceased smoking as part of lifestyle modifications. - The patient is consuming Ensure nutritional drinks, with a typical intake of 2 to 3 cans daily, sometimes increased to 4. - Allergic conjunctivitis is noted, with symptoms of red eyes transferring from one eye to the other. Social History - The patient has ceased smoking as part of lifestyle modifications. - Nutritional intake includes Ensure nutritional drinks, with a typical intake of 2 to 3 cans daily, sometimes increased to 4. Review of Systems - Respiratory: Reports no dyspnea, but is under treatment for lung cancer. - Ophthalmologic: Reports red eyes transferring from one eye to the other, attributed to allergies. Physical Exam General: Cooperative and healthy appearing Nutritional Appearance: Well nourished Orientation/consciousness: Patient oriented x3 Limitations: No limitations Head: Normal to inspection General: Appearance normal, both eyes and all related structures Neck: Normal visual inspection Chest: Normal palpation of entire chest wall Respiratory: Diagnosed with early-stage lung cancer, undergoing biopsy and planning for radiation treatment. Requires breathing treatment four times a day (two in the morning and two at night). ormal respiratory effort Neurology: Patient oriented x3 Results - Biopsy: Revealed early-stage lung cancer. Plan - Continue with planned radiation therapy for lung cancer management. - Prescribe Ensure nutritional drinks to support nutritional intake. - Prescribe eye drops for management of allergic conjunctivitis. - Schedule follow-up in three months to monitor progress and adjust treatment as necessary. Discussion Notes I discussed with the patient the diagnosis of early-stage lung cancer and the plan to proceed with radiation therapy. We also talked about the importance of nutritional support through Ensure drinks and the use of eye drops for allergic conjunctivitis. Follow-up was scheduled in three months to assess treatment progress and make necessary adjustments. Patient Instructions - Continue radiation therapy as planned. - Drink Ensure nutritional drinks as recommended. - Use prescribed eye drops for red eyes due to allergies. - Return for follow-up in three months. Medications: New olopatadine 0.2% (Pataday Once Daily Relief) 1 drp ophthalmic (eye) BEDTIME 5 mL 0RF
[2025-08-13 11:02] VITALS: BP 100/62; PULSE 60; TEMP 36.3; O2SAT 92; BMI 20.7
== END 2025-08-13 11:36 | disposition home or self-care (01) ==
LOC: HO.HMCH 10:58
PROVIDERS: PCP Internal Medicine; Visit Provider Internal Medicine
DX: C34.90 Malignant neoplasm of unspecified part of unspecified bronchus or lung (principal)

== ENCOUNTER → 2025-08-13 10:57 | Outpatient (BNVA) | payer MEDICAID, SELFPAY | PROVIDERS: PCP Internal Medicine; Visit Provider Internal Medicine | DX: K21.9 Gastro-esophageal reflux disease without esophagitis (principal); C34.90 Malignant neoplasm of unspecified part of unspecified bronchus or lung; Z87.891 Personal history of nicotine dependence | CPT/HCPCS: 99212 ==

== ENCOUNTER 2025-10-02 07:53 | Outpatient (REF) | payer MEDICAID, SELFPAY ==
[2025-10-02 09:52] LABS: Prostate Specific Antigen 2.82 ng/mL (<0.05-4.0)
== END 2025-10-02 07:54 | disposition home or self-care (01) ==
LOC: HO.LAB 07:53
PROVIDERS: PCP Internal Medicine; Visit Provider Nurse Practitioner Family
DX: N40.1 Benign prostatic hyperplasia with lower urinary tract symptoms (principal); R39.9 Unspecified symptoms and signs involving the genitourinary system
CPT/HCPCS: 36415; 84153

== ENCOUNTER 2025-10-07 10:29 | Outpatient (REF) | payer MEDICAID, SELFPAY ==
--- OUTSIDE RECORDS SUMMARY | 2025-06-09 06:00 | XMS_ITS ---
Author Organization [facility] Address [address] [place] [address] Care Team Providers Care Employment Consultant Name Role Phone Mariano Soliz Primary Care Provider Kira Hodge M.D, M.P.H, Shania Unavailable Yamila Arreola Unavailable [phone] REASON FOR VISIT hearing loss Encounters Encounter Location Date Provider Diagnosis [facility] [address] [place] [address] 06/09/2025 Yamila Arreola Plan Of Treatment No Information Progress Notes * Asim COSTAOB:1950 (74 yo M)Acc No.[id number]:06/09/2025 Patient: Gagan ROONEY Provider: Luis M Arreola Manager Internship :1950 A ge:74 Y S ex:Male Date:06/09/2025 Address:[address] [place], [place] [id number] Pcp:Mariano Soliz Subjective: * Chief Complaints: * 1 . Hearing loss. * Medical History: Objective: * Vitals: * Physical Examination: Assessment: Plan: * Treatment: * Images: * Electronic signature of MARLON Potter on 10/07/2025 at 01:05 PM EST Sign off status: Pending * Provider: Luis M Arreola Manager Internship Date: 0 06/09/2025 Generated for Printi ng/Faxing/eTransmitting on: 1 12/08/2024 01:05 PM EST
--- NOTE | ~2025-10-07 | US_ITS ---
CLINICAL HISTORY: R39.9 - Unspecified symptoms and signs involving the genitourinary system Ultrasound kidneys. COMPARISON: None provided. Technique: Real time sonographic imaging, including color-flow imaging, was performed by the health advisor. Multiple surgical sales representative static images were saved for review. FINDINGS: Right kidney: Cortical medullary differentiation is maintained. Normal color flow by Doppler. Simple renal cyst at the inferior pole measuring 0.7 x 0.7 x 0.7 cm. No hydronephrosis. Right kidney size: 9.7 x 4.1 x 5.8 cm Left kidney: Cortical medullary differentiation is maintained. Normal color flow by Doppler. No calculus or focal parenchymal abnormality identified. No hydronephrosis. Left kidney size: 9.3 x 4.1 x 5.1 cm The urinary bladder is unremarkable. Bilateral ureteral jets visualized. Prevoid volume: 440 mL Postvoid volume: 134 mL Prostate is enlarged measuring 69 mL volume. IMPRESSION: 1. No evidence of renal obstruction. 2. Increased postvoid residual volume of 134 mL. Of note there is prostatomegaly. This document has been electronically signed by: Brandan Chen MD on 10/07/2025 16:29:04
--- OUTSIDE RECORDS SUMMARY | 2025-10-07 13:05 | XMS_ITS | Patient Health Record ---
Author Organization [facility] Address [address] [place] [address] Care Team Providers Care Calibration Tester Name Role Phone Mariano Soliz Primary Care Provider Kira Hodge M.D, M.P.H, Shania Unavailable Yamila Arreola Unavailable [phone] Allergies No Known Allergies Reason For Referral No Information Medications Medication SIG (Take, Route, Frequency, Duration) Notes Start Date End Date Status Tamsulosin HCl 0.4 MG TAKE 1 CAPSULE BY MOUTH ONCE DAILY Oral; Duration: 90 Days Active Topiramate 25 MG TAKE 1 TABLET BY LATASHA TH EVERY DAY Oral; Duration: 30 Days Active Fluticasone Propionate 50 MCG/ACT INSTILL 2 SPRAYS INTO EACH NOSTRIL ONCE DAILY Nasal; Duration: 90 Days Active Bisoprolol Fumarate 5 MG TAKE 1 TABLET B Y MOUTH DAILY Oral; Duration: 90 Days Active Omeprazole 20 MG TAKE 1 CAPSULE BY MOUTH DAILY Oral; Duration: 90 Days Active Albuterol Sulfate (2.5 MG/3ML) 0.083% INHALE 1 VIAL VIA NEBULIZER EVERY 6 HOURS FOR 30 DAYS Inhalation; Duration: 30 Days Active Levocetirizine Dihydrochloride 5 MG TAKE 1 TABLET BY MOUTH EVERY EVENING Oral; Duration: 90 Days Active Ipratropium [place] 0.03 % 2 sprays in e ach nostril Nasally Twice a day; Duration: 30 days 06/09/2025 01/05/2026 Active Incruse Ellipta 62.5 MCG/ACT INHALE 1 PU FF DAILY Inhalation; Duration: 30 Days Active Furosemide 20 MG TAKE 1/2 TABLET BY MOUTH DAILY Oral; Duration: 90 Days Active Breo Ellipta 200-25 MCG/ACT INHALE 1 PUF F INTO LUNGS DAILY AT SAME TIME EVERY DAY Inhalation; Duration: 90 Days Active Tadalafil 5 MG TAKE 1 TABLET BY LATASHA TH EVERY DAY Oral; Duration: 90 Days Active Ventolin HFA 108 (90 Base) MCG/ACT INHALE 1 PUFF INTO LUNGS EVERY 4 HOURS NEEDED FOR WHEEZING OR SHORTNESS OF BREATH Inhalation; Duration: 33 Days Active Ipratropium-Albuterol 0.5-2.5 (3) MG/3ML INHALE 1 VIAL EVERY 20 MINUTES NEEDED FOR SHORTNESS OF BREATH OR WHEEZING FOR 3 DOSES Inhalation; Duration: 30 Days Active Xarelto 20 MG TAKE 1 TABLET BY LATASHA TH EVERY EVENING Oral; Duration: 30 Days Active Social History Tobacco Use: Social History Observation Description Date Details (start date - stop date) Former Smoker NA - NA AUDIT-C (Standard) Question Answer Notes Did you have a drink containing alcohol in the p ast year? No Points 0 Interpretation Negative Tobacco Control (Standard) Question Answer Notes Tobacco use: Former smoker Problems Problem Type SNOMED Code ICD Code Onset Dates Problem Status W/U Status Risk Notes Problem Vasomotor rhinitis (9333698) Vasomotor rhinitis (J30.0) Active confirmed Problem Sensorineural hearing loss, bilateral (777383081) Asymmetric SNHL (sensorineural hearing loss) (H90.3) Active confirmed Vital Signs Height 66 in 06/09/2025 Weight 127 lbs 06/09/2025 BMI 20.5 kg/m2 06/09/2025 Encounters Encounter Location Date Provider Diagnosis [facility] [address] [facility] [address] [place] [address] 06/09/2025 Shania Du Asymmetric SNHL (sensorineural hearing loss) H90.3 ; Vasomotor rhinitis J30.0 and Deviated nasal septum J34.2 Assessments Encounter Date Diagnosis (ICD Code) Assessment Notes Treatment Notes Treatment Clinical Notes Section Notes 06/09/2025 Vasomotor rhinitis (ICD-10 - J30.0) Medically cleared for amplification . 06/09/2025 Asymmetric SNHL (sensorineural hearing loss) (ICD-10 - H90.3) Outside audio reviewed. Asymmtric SNHL. Imaging deferred given patient's age and medical comorbidities. Will f/u in [place] for surveillance audios. See me prn. Medically cleared for amplification . 06/09/2025 Deviated nasal septum (ICD-10 - J34.2) Medically cleared for amplification . Plan Of Treatment No Information Insurance Providers Payer Name Payer Address Payer Phone Subscriber Number Group Number Insured Name Patient Relationship to Insured Coverage Start Date Coverage End Date [facility] [address] [place] [phone] [id number] Gagan Callahan Self - patient is the insured Medical (General) History Medical History History ICD Code Chronic obstructive pulmonary disease [place] Chronic respiratory failure Is on Oxygen
== END 2025-10-07 10:30 | disposition home or self-care (01) ==
LOC: HO.HMGCX 10:29
PROVIDERS: PCP Internal Medicine; Visit Provider Nurse Practitioner Family
DX: N40.1 Benign prostatic hyperplasia with lower urinary tract symptoms (principal); R39.9 Unspecified symptoms and signs involving the genitourinary system
CPT/HCPCS: 76770

== ENCOUNTER → 2025-10-07 10:36 | Outpatient (BNV) | payer MEDICAID, SELFPAY | PROVIDERS: PCP Internal Medicine; Visit Provider Radiology Diagnostic Radiology | DX: N40.0 Benign prostatic hyperplasia without lower urinary tract symptoms (principal) | CPT/HCPCS: 76770 ==

== ENCOUNTER 2025-10-13 10:58 | Outpatient (AMB) | payer MEDICAID, SELFPAY ==
--- OUTSIDE RECORDS SUMMARY | 2025-06-09 06:00 | XMS_ITS ---
Author Organization [facility] Address [address] [facility] [address] [place] [address] Care Team Providers Care Final Inspection Supervisor Name Role Phone Mariano Soliz Primary Care Provider Kira Hodge M.D, M.P.H, Shania Unavailable [phone] Yamila Arreola Unavailable [phone] REASON FOR VISIT hearing loss Encounters Encounter Location Date Provider Diagnosis [facility] [address] [facility] [address] [place] [address] 06/09/2025 Yamila Arreola Plan Of Treatment No Information Progress Notes * Asim COSTAOB:1950 (74 yo M)Acc No.[id number]:06/09/2025 Patient: Gagan ROONEY Provider: Luis M Arreola Gasoline Truck Crane Operator :1950 A ge:74 Y S ex:Male Date:06/09/2025 Address:[address] [place], [place] [id number] Pcp:Mariano Soliz Subjective: * Chief Complaints: * 1 . Hearing loss. * Medical History: Objective: * Vitals: * Physical Examination: Assessment: Plan: * Treatment: * Images: * Electronic signature of MARLON Potter on 10/13/2025 at 12:17 PM EST Sign off status: Pending * Provider: Luis M Arreola Gasoline Truck Crane Operator Date: 0 06/09/2025 Generated for Printi ng/Faxing/eTransmitting on: 1 12/14/2024 12:17 PM EST
--- NOTE | 2025-10-13 11:08 | A.OFFVIS_ITS ---
Intake Visit Reasons: 3m/US/PSA/UA(SET) Intake Note: Patient is present for 3M/US/PSA/UA IMAGIN10/07/25 PSA:2.82 Urology Medication:TAMSULOSIN,TADALAFIL Antibiotic Allergy:NONE Blood Thinner:RIVAROXABAN Esthetician Spa Required: Yes Esthetician Spa Services: Esthetician Spa Present Esthetician Spa Name: [id number] Allergies No Known Allergies Allergy (Verified 10/13/25 13:15) Medication List - Last Reconciled 10/13/25 by TORY Renteria- bisoprolol fumarate 5 mg PO DAILY fluticasone furoate-vilanterol 200-25 mcg/dose (Breo Ellipta) 1 ea inhalation DAILY fluticasone propionate 50 mcg/actuation 1 spray intranasal BID food supplemt, lactose-reduced 1 ea PO TIDWMEAL ipratropium-albuterol 0.5 mg-3 mg(2.5 mg base)/3 mL mL inhalation levocetirizine 5 mg PO QPM olopatadine 0.2% (Pataday Once Daily Relief) 1 drp ophthalmic (eye) BEDTIME omeprazole 20 mg PO DAILY rivaroxaban (Xarelto) 20 mg PO QPM tadalafil (Cialis) 5 mg PO DAILY 90 days tamsulosin 0.4 mg PO DAILY 90 days topiramate 25 mg PO DAILY umeclidinium 62.5 mcg/actuation (Incruse Ellipta) 1 inh inhalation DAILY HPI Comments Details: Gagan is a pleasant 74-year-old Armenian speaking male patient of who was accompanied by his [id number] at today's office visit. He has a past medical history of osteoarthritis, decreased hearing, GERD, BPH, AFib, and COPD on supplemental oxygen via nasal cannula. He presents to the office today for follow-up. Of note, patient was seen approximately 3 months ago as a new patient to establish urological care at which time a retroperitoneal ultrasound and PSA were ordered for further assessment evaluation. These results were reviewed and communicated with the patient today. 10/15 bilateral kidneys with no calculi or hydronephrosis. The urinary bladder is unremarkable. Prostate gland is enlarged measuring 70 mLs. He reports compliance with tamsulosin and low-dose Cialis as prescribed. Patient discusses his longstanding history of lower urinary tract symptoms as he previously followed up with a urologist in [place] however has recently moved here in his looking to establish urological care. Most recent PSA results reviewed with the patient and his [id number] today 10/15 2.8 We did discuss enlarged prostate. We discussed further treatment options and risks and benefits of these treatment options. He does feel lower urinary tract symptoms have been manageable. He does report noting at times he will experience episodes of urinary frequency however describes these as intermittent. We did review bladder triggers and irritants. In office urinalysis results reviewed with the patient today. He denies incontinence, nocturia, hematuria, dysuria, foul smelling urine, changes to urinary stream, flank pain, fever, and or chills. He is happy with his current voiding parameters. We did discussed potential causes of lower urinary tract symptoms. All questions were answered. He otherwise offers no other issues or concerns at this time. [facility] Medical History Osteoarthritis Hearing decreased Cachexia On supplemental oxygen by nasal cannula GERD (gastroesophageal reflux disease) Benign prostate hyperplasia Atrial fibrillation COPD (chronic obstructive pulmonary disease) with acute bronchitis Surgical History No pertinent past surgical history Social History Housing: House Alcohol intake: never Patient Tobacco Use Status: Former Tobacco user e-Cigarette/Vaping Use: Never Used Second Hand Smoke Exposure: Yes service: No Current occupational status: retired and disabled Cognitive needs: Yes (wheelchair, walker) Hearing needs: No Vision needs: Yes (Glasses) Review of Systems Const All systems reviewed & are unremarkable except as noted in HPI and below Physical Exam Const General: cooperative, comfortable, no acute distress, well developed, alert and awake Orientation/consciousness: patient oriented x3 Limitations: language barrier, ambulation with cane and other limitations (Oxygen-dependent O2 via nasal cannula) HEENT Head: Yes normal to inspection, Yes normocephalic and Yes atraumatic Ears: hearing grossly normal bilaterally Eyes General: appearance normal, both eyes and all related structures Neck Neck: Yes normal visual inspection and Yes trachea midline Chest Chest palpation & inspection: normal inspection of the chest Resp Other: O2 dependent via nasal cannula Effort & Inspection: normal respiratory effort and able to speak in complete sentences Cardio Rate: regular rate GI Inspection: Yes normal to inspection General: Yes no CVA tenderness Back/Spine/Pelvis Back: no CVA tenderness Skin General skin exam: no rashes or lesions noted Neuro General: patient oriented x3 Extrem General: Yes normal to inspection Psych Appearance: grossly normal and well kempt Mental Status: mental status grossly normal Speech and movement: Normal speech and movement present and Clear speech present Affect: normal affect Attitude: cooperative Thought process: Normal thought process present Thought content: Normal thought content present Insight: Fair insight present (Psych) Judgement: Fair judgement present (Psych) Results AMB Urinalysis, Automated UA Leukoctes 0 Alexandra/uL Last Edit by MORA Jung on 10/13/25 11:21 UA Nitrite Negative Last Edit by Eusebio Parkinson CCM on 10/13/25 11:21 UA Urobilinogen 0.2 mg/dL Last Edit by Eusebio Parkinson CCM on 10/13/25 11:2 1 UA Protein 15 mg/dL Last Edit by Eusebio Parkinson CCM on 10/13/25 11:21 UA pH 6.0 Last Edit by Eusebio Parkinson CCM on 10/13/25 11:21 UA Blood 0 Blaise/uL Last Edit by Eusebio Parkinson CCM on 10/13/25 11:21 UA Specific [place] 1.010 Last Edit by Eusebio Parkinson CCM on 10/13/25 11: 21 UA Ketone Negative Last Edit by MORA Jung on 10/13/25 11:21 UA Bilirubin 0 mg/dL Last Edit by Eusebio Parkinson CCM on 10/13/25 11:21 UA Glucose 0 mg/dL Last Edit by Eusebio Parkinson CCM on 10/13/25 11:21 Results Reviewed Results Reviewed: Laboratory Last Values Urine pH (Auto) 6.0 10/13/25 11:13 Specific [place] (Auto) 1.010 10/13/25 11:13 Urine Protein (Auto) 15 mg/dL 10/13/25 11:13 Glucose (UA)(Auto) 0 mg/dL 10/13/25 11:13 Urine Ketones (Auto) Negative 10/13/25 11:13 Urine Blood (Auto) 0 Blaise/uL 10/13/25 11:13 Urine Nitrite (Auto) Negative 10/13/25 11:13 Urine Bilirubin (Auto) 0 mg/dL 10/13/25 11:13 Urine Urobilinogen (Auto) 0.2 mg/dL 10/13/25 11:13 Leukocyte Esterase (Auto) 0 Alexandra/uL 10/13/25 11:13 Date of Service: 10/07/25 Procedure(s): US retroperitoneal comp FINDINGS: Right kidney: Cortical medullary differentiation is maintained. Normal color flow by Doppler. Simple renal cyst at the inferior pole measuring 0.7 x 0.7 x 0.7 cm. No hydronephrosis. Right kidney size: 9.7 x 4.1 x 5.8 cm Left kidney: Cortical medullary differentiation is maintained. Normal color flow by Doppler. No calculus or focal parenchymal abnormality identified. No hydronephrosis. Left kidney size: 9.3 x 4.1 x 5.1 cm The urinary bladder is unremarkable. Bilateral ureteral jets visualized. Prevoid volume: 440 mL Postvoid volume: 134 mL Prostate is enlarged measuring 69 mL volume. IMPRESSION: 1. No evidence of renal obstruction. 2. Increased postvoid residual volume of 134 mL. Of note there is prostatomegaly. Assessment & Plan Assessment & Plan (1) Benign prostate hyperplasia: Code(s): N40.0 - Benign prostatic hyperplasia without lower urinary tract symptoms Category: Medical (2) Lower urinary tract symptoms: Code(s): R39.9 - Unspecified symptoms and signs involving the genitourinary system Category: Medical Plan In office urinalysis results with the patient today; as noted above. Recent retroperitoneal ultrasound results reviewed with the patient today; as noted above. Recent PSA results reviewed with the patient today; as noted above. We did discussed bladder triggers and irritants. Continue Flomax and Cialis. Start finasteride as discussed and prescribed. We did discuss enlarged prostate as well as lower urinary tract symptoms; we discussed further treatment options and risks and benefits of these treatment options. All questions were answered. Will obtain PSA in 4-6 months. Follow-up in 4-6 months with PSA and PVR; or sooner with any issues, concerns, and or questions. Orders: Orders AMB Urinalysis Automated Today Z13.9 - Encounter for screening, unspecified Prostate Specific Antigen 4 Months N40.0 - Benign prostatic hyperplasia without lower urinary tract symptoms, R39.9 - Unspecified symptoms and signs involving the genitourinary system Medications: New finasteride 5 mg PO DAILY 90 tabs 1RF 90 days N13.8 - Other obstructive and reflux uropathy, N40.1 - Benign prostatic hyperplasia with lower urinary tract symptoms, R33.9 - Retention of urine, unspecified Refilled tadalafil (Cialis) [id number] [facility] [id number] Member [id number] 5 mg PO DAILY 90 tabs 1RF 90 days tamsulosin 0.4 mg PO DAILY 90 caps 1RF 90 days Patient Instructions: The patient had an opportunity to ask questions regarding the treatment plan. All questions were answered. Physical exam, labs, and imaging were discussed and reviewed in detail. As well as risks, benefits, and discussion of treatment choices. No major barriers to understanding were identified. The patient expressed understanding and agreement with the above treatment plan. The patient was made aware they should contact our office by phone for worsening of their current condition, the appearance of new symptoms, or with any questions or concerns. Compliance is encouraged with any medications and follow up testing that is ordered. It is a privilege to be allowed the opportunity to participate in? your urological care.? Again, if you have any questions or concerns If you have any questions or concerns please do not hesitate to contact me. The office is [phone]. This note is constructed using voice recognition software. While every effort has been made to ensure accuracy sales planner errors may have been included. Yours sincerely, DOMI Renteria Coding Level of Care Code Est Pt Level 4 (72957) Add On Problem Visit Only Diagnoses Benign prostate hyperplasia N40.0 Lower urinary tract symptoms R39.9
--- OUTSIDE RECORDS SUMMARY | 2025-10-13 12:19 | XMS_ITS | Patient Health Record ---
Author Organization [facility] Address [address] [place] [address] Care Team Providers Care Deburring Technician Name Role Phone Mariano Soliz Primary Care Provider Kira Hodge M.D, M.P.H, Shania Unavailable Yamila Arreola Unavailable [phone] Allergies No Known Allergies Reason For Referral [...] EVENING Oral; Duration: 90 Days Active Ipratropium [place] 0.03 % 2 sprays in e ach [...] W/U Status Risk Notes Problem Vasomotor rhinitis (1582418) Vasomotor rhinitis (J30.0) Active confirmed Problem Sensorineural hearing loss, bilateral (557382457) Asymmetric SNHL (sensorineural hearing loss) (H90.3) Active confirmed Vital Signs Height 66 in 06/09/2025 Weight 127 lbs 06/09/2025 BMI 20.5 kg/m2 06/09/2025 Encounters Encounter Location Date Provider Diagnosis [facility] [address] [facility] [address] [place] [address] 06/09/2025 Shania Du Asymmetric SNHL (sensorineural hearing [...] age and medical comorbidities. Will f/u in [place] for surveillance audios. See me prn. Medically cleared for amplification . 06/09/2025 Deviated nasal septum (ICD-10 - J34.2) Medically cleared for amplification . Plan Of Treatment No Information Insurance Providers Payer Name Payer Address Payer Phone Subscriber Number Group Number Insured Name Patient Relationship to Insured Coverage Start Date Coverage End Date [facility] [address] [place] [phone] [id number] Gagan Callahan Self - patient is the insured Medical (General) History Medical History History ICD Code Chronic obstructive pulmonary disease [place] Chronic respiratory failure Is on Oxygen
== END 2025-10-13 12:06 | disposition home or self-care (01) ==
LOC: HO.HUSH 10:59
PROVIDERS: PCP Internal Medicine; Visit Provider Nurse Practitioner Family
DX: N40.0 Benign prostatic hyperplasia without lower urinary tract symptoms (principal); R39.9 Unspecified symptoms and signs involving the genitourinary system; Z13.9 Encounter for screening, unspecified
CPT/HCPCS: 99214

== ENCOUNTER → 2025-10-13 10:58 | Outpatient (BNVA) | payer MEDICAID, SELFPAY | PROVIDERS: PCP Internal Medicine; Visit Provider Nurse Practitioner Family | DX: N40.1 Benign prostatic hyperplasia with lower urinary tract symptoms (principal); N13.8 Other obstructive and reflux uropathy; R39.9 Unspecified symptoms and signs involving the genitourinary system; Z79.899 Other long term (current) drug therapy | CPT/HCPCS: 81003; 99212 ==